=== PATIENT | male | born 1940 | race Caucasian/White ===

== ENCOUNTER 2018-05-01 07:50 | Outpatient (CLI) | payer OTHER ==
[~2018-05-01 07:50] MED LIST: ASA81 MG; ATENOLOL25 MG
== END 2018-05-01 08:04 | disposition home or self-care (01) ==
LOC: RAD 07:50
DX: R09.81 Nasal congestion (principal); J32.8 Other chronic sinusitis; K75.81 Nonalcoholic steatohepatitis (NASH); I10 Essential (primary) hypertension

== ENCOUNTER 2018-05-06 07:14 | Outpatient (CLI) | payer OTHER | END 2018-05-06 07:33 | disposition home or self-care (01) | LOC: NUCLEAR 07:14 | DX: R42 Dizziness and giddiness (principal); I67.89 Other cerebrovascular disease ==